=== PATIENT | female | born 2005 | race Two or more races ===

== ENCOUNTER 2024-12-21 13:31 | Outpatient (CLI) | payer OTHER | END 2024-12-21 13:37 | disposition home or self-care (01) | LOC: PRENATAL 13:31 | PROVIDERS: ATTEND Obstetrics & Gynecology Maternal & Fetal Medicine | DX: O36.80X0 Pregnancy with inconclusive fetal viability, not applicable or unspecified (principal); Z36.82 Encounter for antenatal screening for nuchal translucency; Z14.8 Genetic carrier of other disease; Z3A.13 13 weeks gestation of pregnancy ==

== ENCOUNTER → 2025-02-07 11:58 | Outpatient (CLI) | payer OTHER | END | disposition home or self-care (01) | LOC: PRENATAL 11:58 | PROVIDERS: ATTEND Obstetrics & Gynecology Maternal & Fetal Medicine | DX: O36.80X0 Pregnancy with inconclusive fetal viability, not applicable or unspecified (principal); Z36.82 Encounter for antenatal screening for nuchal translucency; Z14.8 Genetic carrier of other disease; Z3A.20 20 weeks gestation of pregnancy ==

== ENCOUNTER → 2025-04-06 10:00 | Outpatient (CLI) | payer OTHER | END | disposition home or self-care (01) | LOC: PRENATAL 10:00 | PROVIDERS: ATTEND Obstetrics & Gynecology | DX: O26.849 Uterine size-date discrepancy, unspecified trimester (principal); O36.8199 Decreased fetal movements, unspecified trimester, other fetus; O99.019 Anemia complicating pregnancy, unspecified trimester; O32.9XX0 Maternal care for malpresentation of fetus, unspecified, not applicable or unspecified; O28.3 Abnormal ultrasonic finding on antenatal screening of mother; Z3A.29 29 weeks gestation of pregnancy ==

== ENCOUNTER 2025-05-07 04:15 | Inpatient (IN) | payer OTHER ==
[~2025-05-07] VITALS: Ht 160 cm; Wt 66.7 kg
[2025-05-07] VITALS (7 sets, daily range): BP systolic 95–113; BP diastolic 50–64; O2SAT 97–98
[2025-05-07] MEDS ORDERED: PRENATAL TABLE1 EAC1 (04:21)
[2025-05-07] MEDS ORDERED: RINGERS SOLUTION,LACTATED 1,000 ML IV SCH ×2 (04:30→08:15)
[2025-05-07] MEDS ORDERED: TERBUTALINE SULFATE 1 MG/ML AMPUL SUBCUTANEO ONE (06:30)
[2025-05-07 08:01] LABS: URINE APPEARANCE Clear; URINE BILIRRUBIN Negative (NEGATIVE); URINE BLOOD Negative; URINE COLOR Yellow; URINE GLUCOSE Negative (NEGATIVE); URINE KETONE Negative (NEGATIVE); URINE LEUKOCYTE Moderate; URINE NITRATE Negative; URINE PROTEIN Trace (NEGATIVE); URINE UROBILINOGEN 1.0 E.U./dl
[2025-05-07 08:01] LABS: BASO % 0.3 % (0.1-1.2); EOS # 0.08 (0.04-0.54); EOS % 0.9 % (0.7-7.0); LYMPH # 1.25 (1.18-3.74); LYMPH % 13.4 % (19.3-53.1); MEAN PLATELET VOLUME 11.70 fl (9.4-12.4); MONO # 0.76 (0.24-0.82); MONO % 8.1 % (4.7-12.5); NEUT # 7.11 (1.56-6.13); NEUT % 76.1 % (34.0-71.1); RED CELL DISTRIBUTION WIDTH 13.3 % (11.6-14.4)
[2025-05-07 08:02] LABS: URINE BACTERIA 1177.2 uL (0.0-1933); URINE EPITHELIAL CELLS 24.9 uL (0.0-38.8); URINE WBC 49.6 uL (0.0-23.2)
[2025-05-07] MEDS ORDERED: CEFAZOLIN SODIUM 1,000 MG VIAL IV ONE (08:15)
[2025-05-07] MEDS ORDERED: SOD FERRIC GLUC COMPLX/SUCROSE 62.5 MG in 0.9 % SODIUM CHLORIDE 50 ML IV SCH (09:24)
[2025-05-07 09:44] LABS: URINE CAST 0.29 uL (0.0-1.40); URINE RBC 0.2 uL (0.0-20.8)
[2025-05-07] MEDS ORDERED: CEFAZOLIN SODIUM 1,000 MG VIAL IV SCH (14:00)
[2025-05-08 04:43] VITALS: BP 100/59; O2SAT 100
[2025-05-08 07:16] VITALS: BP 95/51
[2025-05-08] MEDS ORDERED: ACETAMINOPHEN 500 MG GEL..CAP PO PRN (08:45)
[2025-05-08 11:40] VITALS: BP 94/47
[2025-05-08 15:10] VITALS: BP 90/59
[2025-05-08 20:00] VITALS: BP 96/59
[2025-05-08 23:19] VITALS: BP 106/63
[2025-05-09 04:00] VITALS: BP 99/56
[2025-05-09 06:39] VITALS: BP 94/58; O2SAT 98
[2025-05-09] MEDS ORDERED: BETAMETHASONE ACETATE,SOD PHOS 30 MG/5 ML ML IM STA (09:06)
[2025-05-09] MEDS ORDERED: NIFEDIPINE 30 MG TAB.SA.OSM PO SCH (09:15)
[2025-05-09 11:17] VITALS: BP 90/55
[2025-05-09 15:02] VITALS: BP 90/50
[2025-05-09 18:58] VITALS: BP 95/50
[2025-05-09 23:19] VITALS: BP 100/60; O2SAT 100
[2025-05-10] MEDS ORDERED: TERBUTALINE SULFATE 1 MG/ML AMPUL SUBCUTANEO ONE (02:00)
[2025-05-10 03:00] VITALS: BP 94/60
[2025-05-10 06:16] VITALS: BP 106/58; O2SAT 97
[2025-05-10] MEDS ORDERED: BETAMETHASONE ACETATE,SOD PHOS 30 MG/5 ML ML IM NR (09:00)
[2025-05-10 11:19] VITALS: BP 92/53
[2025-05-10 16:48] VITALS: BP 96/55
[2025-05-10 20:22] VITALS: BP 109/61
[2025-05-11 00:06] VITALS: BP 100/61
[2025-05-11 03:00] VITALS: BP 101/68
[2025-05-11 08:00] VITALS: BP 98/55
== END 2025-05-11 11:43 | disposition home or self-care (01) | DRG 832 ==
LOC: OBS/DEL 04:15 → LDR 08:03 → OB/GYN 05-10 08:25
PROVIDERS: Specialist; ADMIT Obstetrics & Gynecology; ATTEND Obstetrics & Gynecology
PROC: 4A1HXCZ Monitoring of Products of Conception, Cardiac Rate, External Approach (ICD-10-PCS; principal; 2025-05-07)
PROC: BY4FZZZ Ultrasonography of Third Trimester, Single Fetus (ICD-10-PCS; 2025-05-07)
DX: O47.03 False labor before 37 completed weeks of gestation, third trimester (principal); O23.43 Unspecified infection of urinary tract in pregnancy, third trimester; O99.013 Anemia complicating pregnancy, third trimester; D64.9 Anemia, unspecified; Z3A.33 33 weeks gestation of pregnancy

== ENCOUNTER → 2025-05-16 09:15 | Outpatient (CLI) | payer OTHER ==
[~2025-05-16 09:15] MED LIST: PRENATAL TABLE1 EAC1
== END | disposition home or self-care (01) ==
LOC: PRENATAL 09:15
PROVIDERS: ATTEND Obstetrics & Gynecology Maternal & Fetal Medicine
DX: O26.849 Uterine size-date discrepancy, unspecified trimester (principal); O36.8199 Decreased fetal movements, unspecified trimester, other fetus; Z3A.34 34 weeks gestation of pregnancy

== ENCOUNTER 2025-05-26 16:23 | Inpatient (IN) | payer OTHER ==
[~2025-05-26] VITALS: Ht 160 cm; Wt 68.0 kg
[2025-05-26 15:43] VITALS: BP 100/64
[2025-05-26] MEDS ORDERED: BETAMETHASONE ACETATE,SOD PHOS 30 MG/5 ML ML IM NR (16:30)
[2025-05-26] MEDS ORDERED: MORPHINE SULFATE 4 MG/ML CARTRIDGE IV ONE ×2 (16:30→20:15)
[2025-05-26] MEDS ORDERED: RINGERS SOLUTION,LACTATED 1,000 ML IV SCH (16:30)
[2025-05-26 16:37] LABS: BASO % 0.1 % (0.1-1.2); EOS # 0.00 (0.04-0.54); EOS % 0.0 % (0.7-7.0); LYMPH # 0.96 (1.18-3.74); LYMPH % 9.7 % (19.3-53.1); MEAN PLATELET VOLUME 11.30 fl (9.4-12.4); MONO # 0.51 (0.24-0.82); MONO % 5.1 % (4.7-12.5); NEUT # 8.38 (1.56-6.13); NEUT % 84.3 % (34.0-71.1); RED CELL DISTRIBUTION WIDTH 14.5 % (11.6-14.4)
[2025-05-26 16:42] LABS: URINE APPEARANCE Clear; URINE BILIRRUBIN Small (NEGATIVE); URINE BLOOD Negative; URINE COLOR Dark Yellow; URINE GLUCOSE Negative (NEGATIVE); URINE LEUKOCYTE Small; URINE NITRATE Negative; URINE PROTEIN 30 (NEGATIVE); URINE UROBILINOGEN 1.0 E.U./dl
[2025-05-26 16:46] LABS: URINE BACTERIA 867.6 uL (0.0-1933); URINE EPITHELIAL CELLS 44.1 uL (0.0-38.8); URINE RBC 2.0 uL (0.0-20.8); URINE WBC 22.6 uL (0.0-23.2)
[2025-05-26 16:55] LABS: URINE CAST 0.43 uL (0.0-1.40); URINE KETONE >=160 (NEGATIVE)
[2025-05-26 17:05] LABS: INR 0.99
[2025-05-26 17:29] LABS: ALT/SGPT 12.0 U/L (12-78); AST/SGOT 18.0 U/L (15-37); BILIRUBIN TOTAL 0.8 mg/dL (0.3-1.2); BUN CREA RATIO 14.0 (7.0-25.0); CREATININE SERUM 0.5 mg/dL (0.55-1.02); GFR 155.75; GLOBULINA 3.4 G/DL (2.4-3.5); GLUCOSE FASTING 63.0 mg/dL (65-100); OSMOLALITY SERUM 275.0 MOSM/KG (275-295)
[2025-05-26 20:13] VITALS: BP 94/51; O2SAT 100
[2025-05-26 23:05] VITALS: BP 100/52
[2025-05-27 03:00] VITALS: BP 90/60
[2025-05-27 06:09] VITALS: BP 98/53; O2SAT 98
[2025-05-27 09:58] VITALS: BP 115/55; O2SAT 98
[2025-05-27 15:22] VITALS: BP 108/65
[2025-05-27 15:50] VITALS: BP 104/62
[2025-05-27] MEDS ORDERED: NIFEDIPINE 30 MG TAB.SA.OSM PO SCH (17:00)
[2025-05-27] MEDS ORDERED: TERBUTALINE SULFATE 1 MG/ML AMPUL SUBCUTANEO NR (18:00)
[2025-05-28 00:56] VITALS: BP 100/55
[2025-05-28 08:00] VITALS: BP 99/62; O2SAT 97
[2025-05-28 09:51] LABS: ABG PH 7.427 (7.35-7.45); ABG PO2 107.4 mmHg (80-100); BICARBONATE 22.4 mmol/l (23-25)
[2025-05-28 10:00] LABS: o2 21 %
[2025-05-28 16:26] VITALS: BP 103/60; O2SAT 97
[2025-05-29 00:25] VITALS: BP 95/57
[2025-05-29 08:33] VITALS: BP 100/55
[2025-05-29 16:00] VITALS: BP 102/63; O2SAT 97
[2025-05-30 00:15] VITALS: BP 99/55
[2025-05-30 08:07] VITALS: BP 102/62
[2025-05-30 16:33] VITALS: BP 100/65
[2025-05-30] MEDS ORDERED: CEFAZOLIN SODIUM IV SCH (17:00)
[2025-05-30] MEDS ORDERED: SODIUM CHLORIDE 0.9% IV SCH (17:00)
[2025-05-31] VITALS: BP 94/55
[2025-05-31 08:27] VITALS: BP 105/56; O2SAT 98
== END 2025-05-31 10:18 | disposition home or self-care (01) | DRG 833 ==
LOC: LDR 16:23 → OB/GYN 05-27 08:34
PROVIDERS: Obstetrics & Gynecology; ADMIT Obstetrics & Gynecology; ATTEND Obstetrics & Gynecology
PROC: 4A1HXCZ Monitoring of Products of Conception, Cardiac Rate, External Approach (ICD-10-PCS; principal; 2025-05-26)
PROC: BY4FZZZ Ultrasonography of Third Trimester, Single Fetus (ICD-10-PCS; 2025-05-30)
PROC: BU4CZZZ Ultrasonography of Uterus and Ovaries (ICD-10-PCS; 2025-05-30)
DX: O60.03 Preterm labor without delivery, third trimester (principal); O36.8130 Decreased fetal movements, third trimester, not applicable or unspecified; Z3A.36 36 weeks gestation of pregnancy

== ENCOUNTER 2025-06-13 13:45 | Inpatient (IN) | payer OTHER ==
[~2025-06-13] VITALS: Ht 160 cm; Wt 65.3 kg
[2025-06-13] MEDS ORDERED: PRENATA CHEWAB1 EACH PO (16:14)
[2025-06-14] VITALS (8 sets, daily range): BP systolic 97–121; BP diastolic 60–74
[2025-06-14] MEDS ORDERED: MORPHINE SULFATE 4 MG/ML CARTRIDGE IV ONE (13:15)
[2025-06-14] MEDS ORDERED: LIDOCAINE HCL 1% 10ML VIAL PERCUT ONE (16:00)
[2025-06-14] MEDS ORDERED: ERYTHROMYCIN BASE OPHT 1GM EACH TUBE OP ONE (16:00)
[2025-06-14] MEDS ORDERED: OXYTOCIN 1,000 ML IV SCH (16:00)
[2025-06-14] MEDS ORDERED: CHLORHEXIDINE GLUCONATE 120 ML BOTTLE TOP ONE (16:00)
[2025-06-14 18:54] LABS: BASO % 0.1 % (0.1-1.2); EOS # 0.00 (0.04-0.54); EOS % 0.0 % (0.7-7.0); LYMPH # 1.05 (1.18-3.74); LYMPH % 5.7 % (19.3-53.1); MEAN PLATELET VOLUME 11.80 fl (9.4-12.4); MONO # 1.09 (0.24-0.82); MONO % 5.9 % (4.7-12.5); NEUT # 16.14 (1.56-6.13); NEUT % 87.9 % (34.0-71.1); RED CELL DISTRIBUTION WIDTH 14.5 % (11.6-14.4)
[2025-06-15 08:14] VITALS: BP 109/68
[2025-06-15] MEDS ORDERED: PNV,CALCIUM 72/IRON/FOLIC ACID 1 TAB TABLET PO SCH (09:00)
[2025-06-15 16:30] VITALS: BP 102/60
[2025-06-16 00:36] VITALS: BP 111/69
[2025-06-16 08:38] VITALS: BP 116/74; O2SAT 98
== END 2025-06-16 14:10 | disposition home or self-care (01) | DRG 807 ==
LOC: OB/GYN 06-14 12:52 → LDR 06-14 12:52 → OB/GYN 06-14 15:58
PROVIDERS: ADMIT Obstetrics & Gynecology; ATTEND Obstetrics & Gynecology
PROC: 10E0XZZ Delivery of Products of Conception, External Approach (ICD-10-PCS; principal; 2025-06-14)
PROC: 0HQ9XZZ Repair Perineum Skin, External Approach (ICD-10-PCS; 2025-06-14)
PROC: 4A1HXCZ Monitoring of Products of Conception, Cardiac Rate, External Approach (ICD-10-PCS; 2025-06-14)
DX: O70.0 First degree perineal laceration during delivery (principal); Z37.0 Single live birth; Z3A.38 38 weeks gestation of pregnancy

== ENCOUNTER 2025-06-13 14:53 | Outpatient (CLI) | payer OTHER ==
[~2025-06-13] VITALS: Ht 160 cm; Wt 64.0 kg
[2025-06-13 15:30] VITALS: BP 109/70; O2SAT 100
[2025-06-13] MEDS ORDERED: PRENATA CHEWAB1 EACH PO (16:14)
[2025-06-13] MEDS ORDERED: MORPHINE SULFATE 4 MG IV ONE (16:15)
[2025-06-13] MEDS ORDERED: RINGERS SOLUTION,LACTATED 150 ML IV SCH (16:15)
[2025-06-13 16:45] LABS: URINE APPEARANCE Clear; URINE BILIRRUBIN Negative (NEGATIVE); URINE BLOOD Negative; URINE COLOR Yellow; URINE GLUCOSE Negative (NEGATIVE); URINE LEUKOCYTE Moderate; URINE NITRATE Negative; URINE PROTEIN 30 (NEGATIVE); URINE UROBILINOGEN 0.2 E.U./dl
[2025-06-13 16:51] LABS: URINE BACTERIA 663.5 uL (0.0-1933); URINE EPITHELIAL CELLS 55.3 uL (0.0-38.8); URINE RBC 2.0 uL (0.0-20.8); URINE WBC 113.8 uL (0.0-23.2)
[2025-06-13 17:17] LABS: TYPE CELLS RENAL TUBULAR; URINE CAST 0.58 uL (0.0-1.40); URINE KETONE >=160 (NEGATIVE)
[2025-06-13] MEDS ORDERED: RINGERS SOLUTION,LACTATED 1,000 ML IV SCH (17:30)
[2025-06-13] MEDS ORDERED: MORPHINE SULFATE 4 MG/ML CARTRIDGE IV ONE (17:30)
[2025-06-13 18:51] VITALS: BP 100/68
[2025-06-13 19:51] VITALS: BP 101/61
[2025-06-13 23:09] VITALS: BP 97/50
[2025-06-14 03:35] VITALS: BP 99/60
[2025-06-14 06:12] VITALS: BP 100/55; O2SAT 98
[2025-06-14] MEDS ORDERED: OXYTOCIN 20 UNITS/500ML RL PIGGYBAG IV ONE (09:40)
[2025-06-14] MEDS ORDERED: CHLORHEXIDINE GLUCONATE 120 ML BOTTLE TOP ONE (13:49)
[2025-06-14] MEDS ORDERED: ERYTHROMYCIN BASE OPHT 1GM EACH TUBE OP ONE (13:49)
[2025-06-14] MEDS ORDERED: OXYTOCIN 20 UNITS/1000ML RL PIGGYBAG IV ONE (13:49)
[2025-06-14] MEDS ORDERED: LIDOCAINE HCL 1% 10ML VIAL ONE (13:50)
== END 2025-06-14 12:51 | disposition still patient (30) ==
LOC: OBS/DEL 14:53
PROVIDERS: ATTEND Obstetrics & Gynecology
DX: O26.893 Other specified pregnancy related conditions, third trimester (principal)